=== PATIENT | male | born 1945 | race Caucasian/White ===

== ENCOUNTER → 2017-05-13 | Outpatient (CLI) | payer MEDICARE | END | disposition home or self-care (01) | LOC: GMAH 10:32 | PROVIDERS: ATTEND Family Medicine | DX: Z12.5 Encounter for screening for malignant neoplasm of prostate (principal); E78.2 Mixed hyperlipidemia | CPT/HCPCS: 84443; 84550; G0103 ==

== ENCOUNTER → 2018-05-19 | Outpatient (CLI) | payer MEDICARE | LOC: GMAH 10:28 | PROVIDERS: ATTEND Family Medicine | DX: E78.2 Mixed hyperlipidemia (principal); Z12.5 Encounter for screening for malignant neoplasm of prostate | CPT/HCPCS: 84443; 84550; G0103 ==

== ENCOUNTER → 2019-05-07 | Outpatient (CLI) | payer MEDICARE, OTHER | LOC: SL 20:37 | PROVIDERS: ATTEND Family Medicine | DX: R06.81 Apnea, not elsewhere classified (principal); G47.00 Insomnia, unspecified; I10 Essential (primary) hypertension; I25.9 Chronic ischemic heart disease, unspecified; R06.83 Snoring ==

== ENCOUNTER 2019-05-13 10:48 | Emergency (ER) | payer MEDICARE, OTHER ==
--- NOTE | 2019-05-13 11:42 | RAD ---
EXAM DESCRIPTION: Chest,1 View CLINICAL HISTORY: 73 years Male, Bradycardiac COMPARISON: None. TECHNIQUE: AP portable chest. FINDINGS: Heart size is large with normal pulmonary vascularity. Sternotomy wires are present. No consolidating infiltrate. No pulmonary mass or worrisome nodule. No pneumothorax or pleural effusion. Bones are unremarkable. IMPRESSION: Large heart without congestive failure. Electronically signed by: Sang Peralta MD 05/13/2019 11:40 AM CDT
--- NOTE | 2019-05-13 11:52 | ED.PDOC ---
History of Present Illness - General Chief Complaint: Cardiovascular Problem Time Seen by Provider: 05/13/19 11:29 Source: patient - History of Present Illness Initial Comments: THIS PATIENT COMES TO THE ED FROM CARDIAC REHABILITATION. EVIDENTLY HE HAD BYPASS SURGERY ON 04/14/2019. HE HAS BEEN DOING WELL. HE TAKES METOPROLOL 12.5 MG DAILY AND ON AMIODARONE AND A STATIN. HE PRESENTED TO THE REHAB TODAY AND WAS NOTED TO HAVE A BRADYCARDIA OF 45, DENIES CHEST PAIN BU5T HAD SOME DIAPHORESIS. HE VOICES THAT BEFORE HE HAD THE BYPASS HE WAS HAVING EPISODES OF DIAPHORESIS. HIS CLINICAL SUPPORT TECH IS DR. BROCK AND DR. STALLINGS DID HIS BYPASS SURGERY. Timing/Duration: 1 hour Associated Symptoms: denies symptoms Allergies/Adverse Reactions: Allergies NO KNOWN ALLERGY Allergy (Verified 05/13/19 11:24) Home Medications: Ambulatory Orders Amiodarone HCl 200 mg PO DAILY 05/13/19 HYDROcodone 5MG/APAP 325MG [[place] 5/325] 1 tab PO Q4H 05/13/19 Metoprolol Tartrate [Lopressor] 12.5 mg PO BID 05/13/19 Review of Systems - Review of Systems Constitutional: States: no symptoms reported EENTM: States: no symptoms reported Respiratory: States: no symptoms reported Cardiology: States: other - BRADYCARDIA Gastrointestinal/Abdominal: States: no symptoms reported Genitourinary: States: no symptoms reported Musculoskeletal: States: no symptoms reported Skin: States: no symptoms reported Neurological: States: no symptoms reported Endocrine: States: no symptoms reported Past Medical History (General) - Patient Medical History Hx Cardiac Disorders: Yes Hx Hypertension: Yes Physical Exam - Physical Exam General Appearance: Alert, Well Developed, Well Groomed Eyes, Ears, Nose, Throat Exam: PERRL/EOMI, pharynx normal Neck: non-tender, full range of motion Respiratory: chest non-tender, lungs clear, normal breath sounds, no respiratory distress, no accessory muscle use Cardiovascular/Chest: normal peripheral pulses, regular rate, rhythm, no edema Peripheral Pulses: radial,right: 2+, radial,left: 2+ Gastrointestinal/Abdominal: normal bowel sounds, non tender, soft, no organomegaly, no pulsatile mass Rectal Exam: deferred Extremity: normal range of motion Neurologic: alert, oriented x 3 Skin Exam: normal color, warm/dry Progress - Progress Progress: 05/13/19 12:32 EKG: HR OF 45, NM INTERVAL OF 176, QRS OF 80, QTC OF 427, AXES OF 5 DEGREES. IMPRESSION: SINUS BRADYCARDIA. 05/13/19 13:[address] BROCK: GIVEN THE FACT THAT THE PATIENT IS PRACTICALLY ASYMPTOMATIC HE WILL CONTINUE WITH THE LOW DOSE OF METOPROLOL. HE HAS AN APPT. WITH DR. DUNLAP IN [place]. HE SHOULD CONTINUE CARDIAC REHAB AND RETURN TO ER IF THE SITUATION WARRANTS. - Results/Orders Results/Orders: 05/13/19 11:27 Telemetry .ONCE EKG Stat Pulse Ox Stat Laboratory Results WBC 10.5 K/mm3 (4.8-10.8) 05/13/19 11:26 RBC 4.89 M/mm3 (4.70-6.10) 05/13/19 11:26 Hgb 14.8 gm/dL (14.0-18.0) 05/13/19 11:26 Hct 44.1 % (42.0-52.0) 05/13/19 11:26 MCV 90.2 fl (80.0-94.0) 05/13/19 11:26 MCH 30.3 pg (27.0-31.0) 05/13/19 11:26 MCHC 33.6 g/dL (33.0-37.0) 05/13/19 11:26 RDW 14.4 % (11.5-14.5) 05/13/19 11:26 Plt Count 209 K/mm3 (130-400) 05/13/19 11:26 MPV 8.1 fl (7.40-10.4) 05/13/19 11:26 Absolute Neuts (auto) 5.30 K/uL (1.8-6.8) 05/13/19 11:26 Absolute Lymphs (auto) 3.10 K/uL (1.0-3.4) 05/13/19 11:26 Absolute Monos (auto) 1.20 K/uL (0.2-0.8) H 05/13/19 11:26 Absolute Eos (auto) 0.80 K/uL (0.0-0.4) H 05/13/19 11:26 Absolute Basos (auto) 0.10 K/uL (0.0-0.1) 05/13/19 11:26 Neutrophils % 50.2 % (42.0-78.0) 05/13/19 11:26 Lymphocytes % 29.5 % (20.0-50.0) 05/13/19 11:26 Monocytes % 11.6 % (2.0-9.0) H 05/13/19 11:26 Eosinophils % 7.3 % (1.0-5.0) H 05/13/19 11:26 Basophils % 1.4 % (0.0-2.0) 05/13/19 11:26 PT 9.6 SECONDS (9.0-10.9) 05/13/19 11:26 INR 0.96 (0.9-1.15) 05/13/19 11:26 PTT (SP) 23.0 SECONDS (21.8-31.6) 05/13/19 11:26 Sodium 138 mmol/L (135-145) 05/13/19 11:26 Potassium 4.4 mmol/L (3.6-5.0) 05/13/19 11:26 Chloride 101 mmol/L (101-111) 05/13/19 11:26 Carbon Dioxide 25 mmol/L (21-31) 05/13/19 11:26 Anion Gap 16.4 (12-18) 05/13/19 11:26 BUN 23 mg/dL (7-18) H 05/13/19 11:26 Creatinine 1.27 mg/dL (0.6-1.3) 05/13/19 11:26 BUN/Creatinine Ratio 18.1 (10-20) 05/13/19 11:26 Random Glucose 103 mg/dL (70-105) 05/13/19 11:26 Serum Osmolality 279.6 mOsm/L (275-295) 05/13/19 11:26 Calcium 9.7 mg/dL (8.4-10.2) 05/13/19 11:26 Magnesium 2.2 mg/dL (1.8-2.5) 05/13/19 11:26 Creatine Kinase 64 IU/L (38-174) 05/13/19 11:26 CK-MB (CK-2) 3.2 ng/mL (0.0-4.4) 05/13/19 11:26 CK-MB (CK-2) % Not Reportable 05/13/19 11:26 Troponin I < 0.02 ng/mL (0.01-0.05) 05/13/19 11:26 B-Natriuretic Peptide 152.0 pg/ml (0-100) H 05/13/19 11:26 Departure - Departure Clinical Impression: Bradycardia, Cardiovascular disease Time of Disposition: 13:02 Disposition: Discharge to Home or Self Care Departure Forms: ED Discharge - Pt. Copy, Patient Portal Self Enrollment Instructions: DI for Chest Pain Diet: resume usual diet Activity: increase activity as tolerated Referrals: Hasmukh Diaz MD [Primary Care Provider] - 1-2 Weeks Home Medications: Ambulatory Orders Amiodarone HCl 200 mg PO DAILY 05/13/19 HYDROcodone 5MG/APAP 325MG [[place] 5/325] 1 tab PO Q4H 05/13/19 Metoprolol Tartrate [Lopressor] 12.5 mg PO BID 05/13/19 Additional Instructions: CONTINUE HOME MEDS. RETURN IF YOU HAVE ANY PROBLEMS.
[2019-05-13 13:03] VITALS: TEMP 97.3
[2019-05-13 13:19] VITALS: BP 150/91; O2SAT 97
== END 2019-05-13 13:18 | disposition home or self-care (01) ==
LOC: ER 10:48
DX: R00.1 Bradycardia, unspecified (principal); I51.9 Heart disease, unspecified; I10 Essential (primary) hypertension; Z95.1 Presence of aortocoronary bypass graft; Z79.899 Other long term (current) drug therapy

== ENCOUNTER → 2020-01-29 | Outpatient (CLI) | payer MEDICARE, OTHER | LOC: GMA MATASK 11:59 | PROVIDERS: ATTEND Family Medicine | DX: I10 Essential (primary) hypertension (principal); Z12.5 Encounter for screening for malignant neoplasm of prostate | CPT/HCPCS: 84443; 84550; G0103 ==

== ENCOUNTER → 2020-05-19 | Outpatient (CLI) | payer MEDICARE, OTHER | LOC: GMA MATASK 16:58 | PROVIDERS: ATTEND Family Medicine | DX: Z12.5 Encounter for screening for malignant neoplasm of prostate (principal) ==